=== PATIENT | male | born 1980 ===

== ENCOUNTER 2018-08-06 00:13 | Emergency (ER) | payer OTHER ==
[2018-08-06 00:24] VITALS: O2SAT 97
--- NOTE | 2018-08-06 00:55 | ED PDOC ---
HPI: General Adult Time Seen by Provider: 08/06/18 00:45 Chief Complaint (Nursing): ENT Problem Chief Complaint (Provider): left ear pain, anal pain History Per: Patient History/Exam Limitations: no limitations Onset/Duration Of Symptoms: Days Current Symptoms Are (Timing): Still Present Additional Complaint(s): 38 y/o male presents for evaluation of anal pain x 5 days. Patient reports feeling a "lump" there x 3 weeks, states pain worsened, with associated discharge x 5 days. Denies fever, nausea/vomiting, chest pain, abdominal pain, shortness of breath, palpitations, changes in bowel movements. Took Aleeve yesterday morning. Patient also complaining of left ear pain x 3 days. Denies drainage from ear. Past Medical History Reviewed: Historical Data, Nursing Documentation, Vital Signs Vital Signs: Last Vital Signs Temp 98.4 F 08/06/18 03:52 Pulse 84 08/06/18 03:52 Resp 17 08/06/18 03:52 BP 136/81 08/06/18 03:52 Pulse Ox 97 08/06/18 06:03 - Medical History PMH: No Chronic Diseases - Surgical History Surgical History: No Surg Hx - Family History Family History: States: No Known Family Hx - Living Arrangements Living Arrangements: With Family - Home Medications Home Medications: Ambulatory Orders Medication Instructions Recorded Amoxicillin/Clavulanate [Augmentin 1 tab PO Q12 #14 tab 08/06/18 875 MG-125 MG] Docusate Sodium [Colace] 100 mg PO BID #30 capsule 08/06/18 Hydrocortisone 2.5% (Rectal) 1 applic [place] BID #1 bottle 08/06/18 [Anusol-HC] Ibuprofen [Motrin Tab] 1 tab PO Q6 PRN #20 tab 08/06/18 Neomycin/Polymyxin/Hydrocortis 4 drop OT TID #1 bottle 08/12/18 [Cortisporin Otic Susp] - Allergies Allergies/Adverse Reactions: Allergies Allergy/AdvReac Type Severity Reaction Status Date / Time pollen extracts Allergy COUGH Verified 08/11/18 23:59 mushroom AdvReac PAIN Verified 08/11/18 23:59 Review of Systems ROS Statement: Except As Marked, All Systems Reviewed And Found Negative ENT: Positive for: Ear Pain (left) Gastrointestinal: Positive for: Rectal Pain Physical Exam - Reviewed Nursing Documentation Reviewed: Yes Vital Signs Reviewed: Yes - Physical Exam Appears: Positive for: Well, Non-toxic, No Acute Distress Head Exam: Positive for: ATRAUMATIC, NORMAL INSPECTION, NORMOCEPHALIC Skin: Positive for: Normal Color Eye Exam: Positive for: Normal appearance ENT: Positive for: TM Is/Are (Left TM erythema. Right TM clear. EAC's clear bilaterally. No mastoid swelling/erythema/tenderness bilaterally) Cardiovascular/Chest: Positive for: Regular Rate, Rhythm Respiratory: Positive for: Normal Breath Sounds Gastrointestinal/Abdominal: Positive for: Normal Exam Back: Positive for: Normal Inspection Rectal: Positive for: Other (pink hemorrhoid 12:00 position, tender to touch. surrouninding yellow drainage noted in anal area. No tenderness or fluctuance with MONSE. 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 Armstrong, surgical attendant on-calll, who reduced patient's hemorrhoid and did not notice any signs of infection. Patient educated on findings, discharged with rx Augmentin, Carmita-gurvinder, ibuprofen Advised follow up surgery for hemorroid. Return precautions given Disposition - Clinical Impression Clinical Impression: Left otitis media, Hemorrhoid - Patient ED Disposition Is Patient to be Admitted: No Counseled Patient/Family Regarding: Studies Performed, Diagnosis, Need For Followup, Rx Given - Disposition Referrals: [facility] [Outside] Veronica Collins MD [Staff Provider] - Disposition: Routine/Home Disposition Time: 03:47 Condition: IMPROVED Prescriptions: Amoxicillin/Clavulanate [Augmentin 875 MG-125 MG] 1 tab PO Q12 #14 tab Docusate Sodium [Colace] 100 mg PO BID #30 capsule Hydrocortisone 2.5% (Rectal) [Anusol-HC] 1 applic [place] BID #1 bottle Ibuprofen [Motrin Tab] 1 tab PO Q6 PRN #20 tab PRN Reason: Pain, Moderate (4-7) Instructions: Ear Infections (Otitis Media), Hemorrhoids
[2018-08-06 01:48] LABS: BASO % 0.4 % (0.0-2.0); EOS # 0.2 K/uL (0.0-0.7); EOS % 2.4 % (0.0-4.0); HEMOGLOBIN 14.5 g/dL (12.0-18.0); LYMPH # 3.5 K/uL (1.0-4.3); LYMPH % 37.1 % (20.0-40.0); MEAN CELL VOLUME 90.1 fl (80.0-94.0); MEAN CORPUSCULAR HEMOGLOBIN 30.8 pg (27.0-31.0); MEAN CORPUSCULAR HGB CONC 34.2 g/dL (33.0-37.0); MEAN PLATELET VOLUME 8.5 fl (7.2-11.7); MONO # 1.1 K/uL (0.0-0.8); MONO % 11.6 % (0.0-10.0); NEUT # 4.6 K/uL (1.8-7.0); NEUT % 48.5 % (50.0-75.0); NRBC % 0.1 % (0.0-0.0); RBC 4.7 Mil/uL (4.40-5.90); RED CELL DISTRIBUTION WIDTH 13.8 % (11.5-14.5); WHITE BLOOD COUNT 9.4 K/uL (4.8-10.8)
[2018-08-06 02:02] LABS: ALB/GLOB RATIO 1.2 (1.0-2.1); ALBUMIN 4.2 g/dL (3.5-5.0); ALT/SGPT 32 U/L (21-72); AST/SGOT 28 U/L (17-59); BLOOD UREA NITROGEN 16 mg/dl (9-20); CALCIUM 8.8 mg/dL (8.4-10.2); GFR NON-AFRICAN AMERICAN > 60
[2018-08-06 03:59] VITALS: BP 136/81; PULSE 84; RESP 17; TEMP 98.4
== END 2018-08-06 03:56 | disposition home or self-care (01) ==
LOC: H.ER 00:13
DX: H66.92 Otitis media, unspecified, left ear (principal); K64.9 Unspecified hemorrhoids
CPT/HCPCS: 80053; 83605; 85025; 99284; J1885

== ENCOUNTER 2018-08-11 23:44 | Emergency (ER) | payer OTHER ==
[2018-08-12 00:02] VITALS: BP 131/86; PULSE 90; RESP 16; TEMP 98.9; O2SAT 96
--- NOTE | 2018-08-12 01:31 | ED PDOC ---
HPI: CCC, URI, Sore Throat Time Seen by Provider: 08/12/18 00:24 Chief Complaint (Nursing): ENT Problem Chief Complaint (Provider): left ear pain History Per: Patient History/Exam Limitations: no limitations Onset/Duration Of Symptoms: Days (5) Current Symptoms Are (Timing): Still Present Additional Complaint(s): 38 y/o male presents for evaluation of left ear pain x 5 days. Patient seen here for same at onset; started on Augmentin and ibuprofen. Patient states pain was better but worsened over the weekend. Denies fever, drainage from ear , cough/congestion. Past Medical History Reviewed: Historical Data, Nursing Documentation, Vital Signs Vital Signs: Last Vital Signs Temp 98.9 F 08/11/18 23:59 Pulse 90 08/11/18 23:59 Resp 16 08/11/18 23:59 BP 131/86 08/11/18 23:59 Pulse Ox 96 08/11/18 23:59 - Medical History PMH: No Chronic Diseases - Surgical History Surgical History: No Surg Hx - Family History Family History: States: No Known Family Hx - Living Arrangements Living Arrangements: With Family - Home Medications Home Medications: Ambulatory Orders Medication Instructions Recorded Amoxicillin/Clavulanate [Augmentin 1 tab PO Q12 #14 tab 08/06/18 875 MG-125 MG] Docusate Sodium [Colace] 100 mg PO BID #30 capsule 08/06/18 Hydrocortisone 2.5% (Rectal) 1 applic [place] BID #1 bottle 08/06/18 [Anusol-HC] Ibuprofen [Motrin Tab] 1 tab PO Q6 PRN #20 tab 08/06/18 Neomycin/Polymyxin/Hydrocortis 4 drop OT TID #1 bottle 08/12/18 [Cortisporin Otic Susp] - Allergies Allergies/Adverse Reactions: Allergies Allergy/AdvReac Type Severity Reaction Status Date / Time pollen extracts Allergy COUGH Verified 08/11/18 23:59 mushroom AdvReac PAIN Verified 08/11/18 23:59 Review of Systems ROS Statement: Except As Marked, All Systems Reviewed And Found Negative ENT: Positive for: Ear Pain (left) Physical Exam - Reviewed Nursing Documentation Reviewed: Yes Vital Signs Reviewed: Yes - Physical Exam Appears: Positive for: Well, Non-toxic, No Acute Distress Head Exam: Positive for: ATRAUMATIC, NORMAL INSPECTION, NORMOCEPHALIC Skin: Positive for: Normal Color Eye Exam: Positive for: Normal appearance ENT: Positive for: TM Is/Are (Left EAC edematous, tender with speculum insertion. Tender with right pinna manipulation and palpation of tragus. No mastoid swelling/tenderness bilaterally. TMs clear bilaterally) Cardiovascular/Chest: Positive for: Regular Rate, Rhythm Respiratory: Positive for: Normal Breath Sounds Lymphatic: Positive for: Normal Exam Neurologic/Psych: Positive for: Alert, Oriented (x3) - ECG O2 Sat by Pulse Oximetry: 96 - Progress ED Course And Treament: tramadol PO Patient educated on findings, discharged with rx cortisporin HC Advised to continue previously prescribed medications Follow up PMD 2-3 days Return precautions given Disposition - Clinical Impression Clinical Impression: Otitis externa, left - Patient ED Disposition Is Patient to be Admitted: No Counseled Patient/Family Regarding: Diagnosis, Need For Followup, Rx Given - Disposition Referrals: [facility] [Outside] Disposition: Routine/Home Disposition Time: 01:32 Condition: IMPROVED Prescriptions: Neomycin/Polymyxin/Hydrocortis [Cortisporin Otic Susp] 4 drop OT TID #1 bottle Instructions: Outer Ear Infection
== END 2018-08-12 01:42 | disposition home or self-care (01) ==
LOC: H.ER 23:44
DX: H60.92 Unspecified otitis externa, left ear (principal)